=== PATIENT | female | born 1995 | race Hispanic/Latino ===

== ENCOUNTER 2017-05-18 19:19 | Emergency (ER) | payer OTHER ==
[2017-05-18 19:19] VITALS: BMI 19.8
[2017-05-18 19:34] VITALS: BP 114/70; PULSE 107; RESP 16; TEMP 99.1; O2SAT 99
[2017-05-18 20:42] LABS: BASO # 0.1 K/uL (0.0-0.2); BASO % 1.1 % (0.0-2.0); EOS # 0.1 K/uL (0.0-0.7); HEMATOCRIT 34.3 % (34.0-47.0); LYMPH # 1.1 K/uL (1.0-4.3); LYMPH % 14.1 % (20.0-40.0); MEAN CELL VOLUME 85.3 fl (81.0-99.0); MEAN CORPUSCULAR HEMOGLOBIN 28.4 pg (27.0-31.0); MEAN CORPUSCULAR HGB CONC 33.3 g/dL (33.0-37.0); MEAN PLATELET VOLUME 9.3 fl (7.2-11.7); MONO # 0.5 K/uL (0.0-0.8); MONO % 6.7 % (0.0-10.0); NEUT # 6.2 K/uL (1.8-7.0); NEUT % 77.1 % (50.0-75.0); RED CELL DISTRIBUTION WIDTH 15.8 % (11.5-14.5)
[2017-05-18 20:53] LABS: POTASSIUM 4.4 MMOL/L (3.6-5.0)
--- NOTE | 2017-05-18 20:53 | ED PDOC ---
HPI: Abdomen Time Seen by Provider: 05/18/17 19:41 Chief Complaint (Nursing): Female Genitourinary Chief Complaint (Provider): abdominal pain History Per: Patient History/Exam Limitations: no limitations Onset/Duration Of Symptoms: Days (x2) Current Symptoms Are (Timing): Still Present Additional Complaint(s): 22 year old female, currently 12 weeks , who presents to the emergency department with a complaint of abdominal pain associated with diarrhea, nausea and mild brown vaginal discharge ongoing for 2 days. Patient reported hospitalization at [facility] in 4th week of for an ovarian cyst that did not require surgery. P:1 PMD: Delfino Nettles MD Past Medical History Reviewed: Historical Data, Nursing Documentation, Vital Signs Vital Signs: Last Vital Signs Temp 99.1 F 05/18/17 19:31 Pulse 107 H 05/18/17 19:31 Resp 16 05/18/17 19:31 BP 114/70 05/18/17 19:31 Pulse Ox 99 05/18/17 20:58 - Medical History PMH: Back Problems (back pain), Gastritis Denies: Diabetes, Hepatitis, HIV, HTN, Chronic Kidney Disease, Seizures, Sexually Transmitted Disease - Surgical History Surgical History: Cholecystectomy (05/2015) - Family History Family History: States: Unknown Family Hx - Social History Current smoker - smoking cessation education provided: No Alcohol: None Drugs: Denies - Immunization History Hx Tetanus Toxoid Vaccination: No Hx Influenza Vaccination: No Hx Pneumococcal Vaccination: No - Home Medications Home Medications: Ambulatory Orders Medication Instructions Recorded Ciprofloxacin [Cipro] 500 mg PO Q12 #20 tab 08/24/16 Famotidine [Pepcid] 40 mg PO DAILY #30 tablet 08/24/16 Metronidazole [Flagyl] 500 mg PO Q8 #30 tablet 08/24/16 Omeprazole Magnesium [Prilosec Otc] 20 mg PO DAILY #30 tablet. 08/24/16 Dicyclomine [Bentyl] 20 mg PO Q12 PRN #20 tab 05/19/17 - Allergies Allergies/Adverse Reactions: Allergies Allergy/AdvReac Type Severity Reaction Status Date / Time No Known Allergies Allergy Verified 08/22/16 20:22 Review of Systems ROS Statement: Except As Marked, All Systems Reviewed And Found Negative Gastrointestinal: Positive for: Nausea, Abdominal Pain, Diarrhea Genitourinary Female: Positive for: Vaginal Discharge (mildly brownish) Physical Exam - Reviewed Nursing Documentation Reviewed: Yes Vital Signs Reviewed: Yes - Physical Exam Appears: Positive for: Well, Non-toxic, No Acute Distress Head Exam: Positive for: ATRAUMATIC, NORMAL INSPECTION, NORMOCEPHALIC Skin: Positive for: Normal Color Eye Exam: Positive for: EOMI, Normal appearance, PERRL ENT: Positive for: Normal ENT Inspection Neck: Positive for: Normal, Painless ROM, Supple. Negative for: Decreased ROM Cardiovascular/Chest: Positive for: Regular Rate, Rhythm, Chest Non Tender Respiratory: Positive for: Normal Breath Sounds. Negative for: Decreased Breath Sounds, Respiratory Distress Gastrointestinal/Abdominal: Positive for: Tenderness (diffuse mildly). Negative for: Normal Exam Back: Positive for: Normal Inspection. Negative for: L CVA Tenderness, R CVA Tenderness Extremity: Positive for: Normal ROM. Negative for: Tenderness, Pedal Edema Neurologic/Psych: Positive for: Alert (x3), Oriented - Laboratory Results Result Diagrams: 05/18/17 20:38 05/18/17 20:38 - ECG O2 Sat by Pulse Oximetry: 99 (RA) Pulse Ox Interpretation: Normal Medical Decision Making Medical Decision Making: Initial Impression: Abdominal pain; Initial Plan: * Beta-HCG * CMP * Urine dipstick * CBC * Tylenol 650mg PO * Urinalysis * US pelvis/transvag * Reassess: --Time: 23:00 Patient states improvement of symptoms and is stable for discharge home. Instructed to follow up with primary care doctor. Diagnosis: Abdominal pain during , Gastroenteritis --Time: 23:44 FINDINGS: A single intrauterine gestation is identified in transverse presentation with the placenta posterior. motion is identified, as is cardiac activity at a rate of 165 beats per minute. The crown-rump length measures 6.8 cm, corresponding to an approximate gestational age of 13 weeks and 1 day. Despite prolonged interrogation, neither ovary was visualized. No free fluid is identified within the cul-de-sac. IMPRESSION: Single intrauterine gestation with an approximate gestational age of 13 weeks and 1 day. cardiac activity is identified. Despite prolonged interrogation, neither ovary was visualized. No free fluid. Scribe Attestation: Documented by Alta Zambrano, acting as a scribe for Jatin Garza MD. Provider Scribe Attestation: All medical record entries made by the Scribe were at my direction and personally dictated by me. I have reviewed the chart and agree that the record accurately reflects my personal performance of the history, physical exam, medical decision making, and the department course for this patient. I have also personally directed, reviewed, and agree with the discharge instructions and disposition. Disposition - Clinical Impression Clinical Impression: Abdominal pain, Gastroenteritis - Patient ED Disposition Is Patient to be Admitted: No - Disposition Disposition: Routine/Home Disposition Time: 23:00 (Follow up with PMD) Condition: IMPROVED Prescriptions: Dicyclomine [Bentyl] 20 mg PO Q12 PRN #20 tab PRN Reason: abdominal pain/diarrhea Forms: [employer] (Italian)
[2017-05-18 21:02] LABS: ALB/GLOB RATIO 1.3 (1.0-2.1); ALKALINE PHOSPHATASE 61 U/L (38-126); ALT/SGPT 51 U/L (9-52); AST/SGOT 35 U/L (14-36); BILIRUBIN,TOTAL 0.3 mg/dl (0.2-1.3); BLOOD UREA NITROGEN 7 mg/dl (7-17); CALCIUM 8.7 mg/dL (8.4-10.2); CARBON DIOXIDE 26 mmol/L (22-30); CHLORIDE 106 mmol/L (98-107); GFR AFRICAN-AMERICAN > 60; GLUCOSE,RANDOM 100 mg/dL (65-105); SODIUM 138 mmol/l (132-148); TOTAL PROTEIN 7.2 G/DL (6.3-8.2)
[2017-05-18 21:06] LABS: RBC URINE 7 /hpf (0-3); URINE BACTERIA MANY (<OCC); URINE BILIRUBIN NEGATIVE (NEGATIVE); URINE BLOOD NEGATIVE (NEGATIVE); URINE COLOR YELLOW (YELLOW); URINE GLUCOSE (UA) NEG (Normal); URINE KETONE NEGATIVE (NEGATIVE); URINE LEUKOCYTE ESTERASE NEG Leu/uL (Negative); URINE PROTEIN 30 mg/dL (NEGATIVE); WBC URINE 5 /hpf (0-5)
--- NOTE | 2017-05-19 17:46 | US ---
PROCEDURE: Pelvic/OB ultrasound HISTORY: Vaginal bleeding in preg COMPARISON: Comparison made with prior study dated 05/13/2016. FINDINGS: UTERUS: There is a single living intrauterine gestation. Placenta is posteriorly located the clear of the cervical os. Measurements: BPD: 2.4 cm = 14 weeks 1 day AC: 6.7 cm = 13 weeks 2 days HC: 8 cm = 13 weeks 3 days FL: 0.91 cm = 12 weeks 5 days Heart rate documented at 165 BPM motion detected Average ultrasound age = 13 weeks 2 days 1 week 0 day JON based on average ultrasound age = 0611/21/2017 anatomy survey was not performed at this early age. Neither right nor left adnexa visualized on this study. No gross free fluid seen in the cul de sac. IMPRESSION: Single living intrauterine gestation with average ultrasound age estimated approximately 13 weeks 2 days 1 week 0 days. . heart rate and motion documented as above. Placenta is posteriorly located. anatomy survey not performed during this exam.
== END 2017-05-19 00:23 | disposition home or self-care (01) ==
LOC: H.ER 19:19
DX: O26.91 Pregnancy related conditions, unspecified, first trimester (principal); R10.2 Pelvic and perineal pain; Z3A.12 12 weeks gestation of pregnancy

== ENCOUNTER 2018-02-20 23:22 | Emergency (ER) | payer OTHER ==
[2018-02-20 23:22] VITALS: BMI 19.8
[2018-02-20 23:43] VITALS: BP 110/67; PULSE 70; RESP 18; TEMP 98.5; O2SAT 100
--- NOTE | 2018-02-20 23:46 | ED PDOC ---
Lower Extremity Pain/Injury Time Seen by Provider: 02/20/18 23:45 Chief Complaint (Nursing): Lower Extremity Problem/Injury Chief Complaint (Provider): knee pain History Per: Patient Additional Complaint(s): 22-year-old female presents with pain to right knee status post twisting her knee at work about 1 week ago. 2 days ago patient had a massage to the same knee and now pain is worse. Patient took Naprosyn 3 days ago which did not help. She has not taken anything for pain since then. Patient has been using a brace which has helped somewhat. PMD: Dr. Gonzáles Past Medical History Reviewed: Historical Data, Nursing Documentation, Vital Signs Vital Signs: Last Vital Signs Temp 98.5 F 02/20/18 23:41 Pulse 70 02/20/18 23:41 Resp 18 02/20/18 23:41 BP 110/67 02/20/18 23:41 Pulse Ox 100 02/20/18 23:41 - Medical History PMH: Back Problems (back pain), Gastritis - Surgical History Surgical History: Cholecystectomy (05/2015) - Family History Family History: States: No Known Family Hx - Living Arrangements Living Arrangements: With Family - Social History Current smoker - smoking cessation education provided: No Alcohol: None Drugs: Denies - Home Medications Home Medications: Ambulatory Orders Medication Instructions Recorded Ciprofloxacin [Cipro] 500 mg PO Q12 #20 tab 08/24/16 Famotidine [Pepcid] 40 mg PO DAILY #30 tablet 08/24/16 Metronidazole [Flagyl] 500 mg PO Q8 #30 tablet 08/24/16 Omeprazole Magnesium [Prilosec Otc] 20 mg PO DAILY #30 tablet. 08/24/16 Dicyclomine [Bentyl] 20 mg PO Q12 PRN #20 tab 05/19/17 Ibuprofen [Motrin Tab] 800 mg PO Q8 PRN #20 tab 02/21/18 - Allergies Allergies/Adverse Reactions: Allergies Allergy/AdvReac Type Severity Reaction Status Date / Time No Known Allergies Allergy Verified 02/20/18 23:41 Wells Criteria for PE - Wells Criteria for Pulmonary Embolism Clinical Signs and Symptoms of DVT: No P.E is #1 Diagnosis, or Equally Likely: No Heart Rate >100: No Immobilization at least 3 days;Surgery previous 4 weeks: No Previous, objectively diagnosed PE or DVT: No Hemoptysis: No Malignancy w/treatment within 6 months, or palliative: No Total Score: 0 Review of Systems ROS Statement: Except As Marked, All Systems Reviewed And Found Negative Musculoskeletal: Positive for: Other (right knee pain) Physical Exam - Reviewed Nursing Documentation Reviewed: Yes Vital Signs Reviewed: Yes - Physical Exam Appears: Positive for: Well, Non-toxic, No Acute Distress Skin: Positive for: Normal Color. Negative for: Rash Eye Exam: Positive for: Normal appearance Extremity: Positive for: Other (Mild swelling and tenderness to right anterior knee with full range of motion, no calf swelling or tenderness, normal distal sensation) Neurologic/Psych: Positive for: Alert, Oriented - Laboratory Results Urine POC: Negative - ECG O2 Sat by Pulse Oximetry: 100 Pulse Ox Interpretation: Normal - Other Rad Right knee x-ray X-Ray: Interpreted by Me, Viewed By Me X-Ray Interpretation: no fx, no dis Medical Decision Making Medical Decision Makin22 y/o female with right knee pain Plan: test PO motrin X-ray right knee Patient states she feels better after Motrin dose. Knee immobilizer given, crutches declined. Patient was referred to orthopedist for follow-up. Procedures - Splinting Location: right knee Pre-Made Type: knee immobilizer Pre-Proc Neuro Vasc Exam: normal Post-Proc Neuro Vasc Exam: normal Disposition - Clinical Impression Clinical Impression: Knee sprain - Patient ED Disposition Is Patient to be Admitted: No Counseled Patient/Family Regarding: Studies Performed, Diagnosis, Need For Followup, Rx Given - Disposition Referrals: Delfino Nettles MD [Family Provider] - Yifan Rodríguez MD [Staff Provider] - Disposition: Routine/Home Disposition Time: 00:59 Condition: STABLE Additional Instructions: Ice, rest and elevate affected area. Take prescription meds as directed as needed for pain. Follow-up with orthopedist for any persistent symptoms. Prescriptions: Ibuprofen [Motrin Tab] 800 mg PO Q8 PRN #20 tab PRN Reason: Pain, Moderate (4-7) Instructions: Knee Sprain (DC), Knee Immobilizer (DC) Forms: [employer] (Bahamian)
--- NOTE | 2018-02-21 09:07 | RAD ---
Date of service: 02/21/2018 PROCEDURE: Right Knee Radiographs. HISTORY: trauma COMPARISON: None. FINDINGS: BONES: No acute fracture or destructive bony lesion identified. JOINTS: No subluxation or dislocation. No osteoarthritis. JOINT EFFUSION: None. OTHER FINDINGS: None. IMPRESSION: Normal radiographs of the right knee.
== END 2018-02-21 01:19 | disposition home or self-care (01) ==
LOC: H.ER 23:22
DX: S83.91XA Sprain of unspecified site of right knee, initial encounter (principal); X50.9XXA Other and unspecified overexertion or strenuous movements or postures, initial encounter; Y99.0 Civilian activity done for income or pay

== ENCOUNTER 2018-06-20 00:03 | Emergency (ER) | payer OTHER ==
[2018-06-20 00:03] VITALS: BMI 19.8
[2018-06-20 00:18] VITALS: RESP 18; O2SAT 100
--- NOTE | 2018-06-20 04:59 | ED PDOC ---
Upper Extremity Pain/Injury Time Seen by Provider: 06/20/18 04:15 Chief Complaint (Nursing): Upper Extremity Problem/Injury Chief Complaint (Provider): Upper Extremity Problem/Injury History Per: Patient History/Exam Limitations: no limitations Onset/Duration Of Symptoms: Persistent (x2 weeks) Current Symptoms Are (Timing): Still Present Additional Complaint(s): 23 year old female presents to ED with a complaint of right upper and lower extremity pain ongoing for 2 weeks. Patient states she recently traveled to [facility] and was evaluated by a doctor for similar symptoms then given medication for "her nerves". She has limited ROM secondary to pain. Otherwise, patient denies traumatic injury, fall, fever, chills, weight loss, nausea, or vomiting. PCP: Dr. Delfino Nettles Past Medical History Reviewed: Historical Data, Nursing Documentation, Vital Signs Vital Signs: Last Vital Signs Temp 99.1 F 06/20/18 00:15 Pulse 88 06/20/18 00:15 Resp 18 06/20/18 00:15 BP 136/89 06/20/18 00:15 Pulse Ox 100 06/20/18 00:15 - Medical History PMH: Back Problems (back pain), Gastritis, HIV Denies: Diabetes, Hepatitis, HTN, Chronic Kidney Disease, Seizures, Sexually Transmitted Disease - Surgical History Surgical History: Cholecystectomy (05/2015) - Family History Family History: States: Unknown Family Hx - Immunization History Hx Tetanus Toxoid Vaccination: No Hx Influenza Vaccination: No Hx Pneumococcal Vaccination: No - Home Medications Home Medications: Ambulatory Orders Medication Instructions Recorded Ciprofloxacin [Cipro] 500 mg PO Q12 #20 tab 08/24/16 Famotidine [Pepcid] 40 mg PO DAILY #30 tablet 08/24/16 Metronidazole [Flagyl] 500 mg PO Q8 #30 tablet 08/24/16 Omeprazole Magnesium [Prilosec Otc] 20 mg PO DAILY #30 tablet. 08/24/16 Dicyclomine [Bentyl] 20 mg PO Q12 PRN #20 tab 05/19/17 Ibuprofen [Motrin Tab] 800 mg PO Q8 PRN #20 tab 02/21/18 Cyclobenzaprine [Cyclobenzaprine 10 mg PO TID PRN #15 tab 06/20/18 HCl] Naproxen [Naprosyn] 500 mg PO Q12 #14 tab 06/20/18 - Allergies Allergies/Adverse Reactions: Allergies Allergy/AdvReac Type Severity Reaction Status Date / Time No Known Allergies Allergy Verified 02/20/18 23:41 Review of Systems ROS Statement: Except As Marked, All Systems Reviewed And Found Negative Constitutional: Negative for: Fever, Chills, Weight loss Gastrointestinal: Negative for: Nausea, Vomiting Musculoskeletal: Positive for: Arm Pain (right), Leg Pain (right) Physical Exam - Reviewed Nursing Documentation Reviewed: Yes Vital Signs Reviewed: Yes - Physical Exam Appears: Positive for: No Acute Distress Head Exam: Positive for: ATRAUMATIC Skin: Positive for: Normal Color Eye Exam: Positive for: Normal appearance ENT: Positive for: Normal ENT Inspection Neck: Positive for: Normal Cardiovascular/Chest: Positive for: Regular Rate, Rhythm Respiratory: Positive for: Normal Breath Sounds Gastrointestinal/Abdominal: Positive for: Normal Exam Back: Positive for: Normal Inspection Extremity: Positive for: Normal ROM (right shoulder and right leg), Tenderness (point tender on posterior right shoulder). Negative for: Pedal Edema, Calf Tenderness, Deformity (right shouder or arm), Swelling Neurologic/Psych: Positive for: Alert, Oriented. Negative for: Motor/Sensory Deficits - Laboratory Results Result Diagrams: 06/20/18 04:56 06/20/18 04:56 - ECG O2 Sat by Pulse Oximetry: 100 (RA) Pulse Ox Interpretation: Normal Medical Decision Making Medical Decision Making: Initial Impression: 23 year old female with right shoulder pain. Initial Plan: * Labs * Flexeril 10mg PO * Toradol 30mg IV * XR shoulder (YSABEL) * Influenza A B Time: 631 --Labs reviewed: no significant clinical abnormality. Negative for influenza. Bilateral shoulder XRs interpreted by provider: (-) fracture and (-) dislocation. Upon provider reevaluation, patient is medically stable, reports some improvement in symptoms, and requires no further treatment in the ED at this time. Counseling was provided and all questions were answered regarding diagnosis. There is agreement to discharge plan. Return if symptoms persist or worsen. Clinical Impression: musculoskeletal pain of extremity Scribe Attestation: Documented by Alta Zambrano, acting as a scribe for Jatin Garza MD. Provider Scribe Attestation: All medical record entries made by the Scribe were at my direction and personally dictated by me. I have reviewed the chart and agree that the record accurately reflects my personal performance of the history, physical exam, me dical decision making, and the department course for this patient. I have also personally directed, reviewed, and agree with the discharge instructions and disposition. Disposition - Clinical Impression Clinical Impression: Musculoskeletal pain of extremity - Patient ED Disposition Is Patient to be Admitted: No Counseled Patient/Family Regarding: Studies Performed, Diagnosis, Need For Followup - Disposition Disposition: Routine/Home Disposition Time: 06:32 Condition: STABLE Prescriptions: Cyclobenzaprine [Cyclobenzaprine HCl] 10 mg PO TID PRN #15 tab PRN Reason: Muscle Pain Naproxen [Naprosyn] 500 mg PO Q12 #14 tab Instructions: Shoulder Sprain Forms: [facility] ([employer])
[2018-06-20 05:26] LABS: BASO # 0.1 K/uL (0.0-0.2); BASO % 0.9 % (0.0-2.0); EOS # 0.2 K/uL (0.0-0.7); EOS % 3.4 % (0.0-4.0); HEMOGLOBIN 12.6 g/dL (12.0-16.0); LYMPH # 2.3 K/uL (1.0-4.3); LYMPH % 32.1 % (20.0-40.0); MEAN CELL VOLUME 82.5 fl (81.0-99.0); MEAN CORPUSCULAR HEMOGLOBIN 26.5 pg (27.0-31.0); MEAN CORPUSCULAR HGB CONC 32.2 g/dL (33.0-37.0); MEAN PLATELET VOLUME 9.4 fl (7.2-11.7); MONO # 0.7 K/uL (0.0-0.8); MONO % 9.4 % (0.0-10.0); NEUT # 3.9 K/uL (1.8-7.0); NEUT % 54.2 % (50.0-75.0); NRBC % 0.1 % (0.0-0.0); RBC 4.76 Mil/uL (3.80-5.20); RED CELL DISTRIBUTION WIDTH 15.5 % (11.5-14.5); WHITE BLOOD COUNT 7.1 K/uL (4.8-10.8)
[2018-06-20 05:27] LABS: SQUAMOUS EPITHIAL 7 /hpf (0-5); URINE BACTERIA OCC (<OCC); URINE BILIRUBIN NEGATIVE (NEGATIVE); URINE CLARITY CLOUDY (Clear); URINE COLOR YELLOW (YELLOW); URINE GLUCOSE (UA) NEG (NEGATIVE); URINE LEUKOCYTE ESTERASE TRACE Leu/uL (Negative); URINE PROTEIN 30 mg/dL (NEGATIVE); URINE UROBILINOGEN 0.2-1.0 mg/dL (0.2-1.0)
[2018-06-20 05:28] LABS: URINE BLOOD SMALL (NEGATIVE)
[2018-06-20 05:37] LABS: ALB/GLOB RATIO 1.3 (1.0-2.1); ALBUMIN 4.5 g/dL (3.5-5.0); ALT/SGPT 27 U/L (9-52); AST/SGOT 26 U/L (14-36); BLOOD UREA NITROGEN 11 mg/dl (7-17); GFR NON-AFRICAN AMERICAN > 60
[2018-06-20 06:54] VITALS: BP 128/78; PULSE 76; TEMP 98.9
--- NOTE | 2018-06-20 12:29 | RAD ---
PROCEDURE: Radiographs of the Right Shoulder HISTORY: pain COMPARISON: None available FINDINGS: BONES: No acute displaced fracture. The distal clavicle and underlying ribs appear intact. JOINTS: No acute dislocation. SOFT TISSUES: Soft tissues appear unremarkable. No evidence of radiopaque foreign body. IMPRESSION: No acute displaced fracture or dislocation evident. If symptoms persist or if there is continued clinical concern, x-ray follow-up in 7-10 days should be considered.
== END 2018-06-20 06:45 | disposition home or self-care (01) ==
LOC: H.ER 00:03
DX: M79.18 Myalgia, other site (principal)
CPT/HCPCS: 73030; 80053; 81003; 81025; 82550; 85025; 85651; 87804; 99284; J1885

== ENCOUNTER 2018-08-25 19:50 | Emergency (ER) | payer OTHER ==
[2018-08-25 19:50] VITALS: BMI 19.8
[2018-08-25 20:35] VITALS: BP 112/76; PULSE 78; RESP 18; TEMP 98.1; O2SAT 99
--- NOTE | 2018-08-25 22:04 | ED PDOC ---
Upper Extremity Pain/Injury Time Seen by Provider: 08/25/18 20:59 Chief Complaint (Nursing): Finger,Hand,&Wrist Chief Complaint (Provider): third digit trauma History Per: Patient History/Exam Limitations: no limitations Onset/Duration Of Symptoms: Days (three) Current Symptoms Are (Timing): Better Quality: "Pain" Severity: Mild Additional Complaint(s): Pt complains of falling on her left hand and injuring her third digit at the MCP; there is no deformity, full 5/5 strength and full ROM exist Past Medical History Reviewed: Historical Data, Nursing Documentation, Vital Signs Vital Signs: Last Vital Signs Temp 98.1 F 08/25/18 20:31 Pulse 78 08/25/18 20:31 Resp 18 08/25/18 20:31 BP 112/76 08/25/18 20:31 Pulse Ox 99 08/25/18 20:31 - Medical History PMH: Back Problems (back pain), Gastritis, HIV Denies: Diabetes, Hepatitis, HTN, Chronic Kidney Disease, Seizures, Sexually Transmitted Disease - Surgical History Surgical History: Cholecystectomy (05/2015) - Family History Family History: States: Unknown Family Hx - Immunization History Hx Tetanus Toxoid Vaccination: No Hx Influenza Vaccination: No Hx Pneumococcal Vaccination: No - Home Medications Home Medications: Ambulatory Orders Medication Instructions Recorded Ciprofloxacin [Cipro] 500 mg PO Q12 #20 tab 08/24/16 Famotidine [Pepcid] 40 mg PO DAILY #30 tablet 08/24/16 Metronidazole [Flagyl] 500 mg PO Q8 #30 tablet 08/24/16 Omeprazole Magnesium [Prilosec Otc] 20 mg PO DAILY #30 tablet. 08/24/16 Dicyclomine [Bentyl] 20 mg PO Q12 PRN #20 tab 05/19/17 Ibuprofen [Motrin Tab] 800 mg PO Q8 PRN #20 tab 02/21/18 Cyclobenzaprine [Cyclobenzaprine 10 mg PO TID PRN #15 tab 06/20/18 HCl] Naproxen [Naprosyn] 500 mg PO Q12 #14 tab 06/20/18 Diclofenac Potassium 50 mg PO BID #20 tablet 08/25/18 - Allergies Allergies/Adverse Reactions: Allergies Allergy/AdvReac Type Severity Reaction Status Date / Time No Known Allergies Allergy Verified 02/20/18 23:41 Review of Systems Musculoskeletal: Positive for: Hand Pain Physical Exam - Reviewed Nursing Documentation Reviewed: Yes Vital Signs Reviewed: Yes - Physical Exam Appears: Positive for: Well, Non-toxic, No Acute Distress. Negative for: Uncomfortable Head Exam: Positive for: ATRAUMATIC, NORMAL INSPECTION Skin: Positive for: Normal Color, Warm, Dry. Negative for: Diaphoresis, Pallor, Rash Eye Exam: Positive for: Normal appearance Neck: Positive for: Normal, Supple Cardiovascular/Chest: Positive for: Regular Rate, Rhythm Respiratory: Positive for: Normal Breath Sounds Pulses-Carotid (L): 2+ Pulses-Carotid (R): 2+ Pulses-Radial (L): 2+ Pulses-Radial (R): 2+ Extremity: Positive for: Normal ROM, Tenderness, Capillary Refill (<2seconds and all neurosensory capabillitis remain; 5/5 strength), Swelling. Negative for: Pedal Edema, Deformity - ECG O2 Sat by Pulse Oximetry: 99 Disposition - Clinical Impression Clinical Impression: Contusion - Disposition Referrals: Delfino Nettles MD [Primary Care Provider] - Disposition: Routine/Home Disposition Time: 22:18 Condition: STABLE Prescriptions: Diclofenac Potassium 50 mg PO BID #20 tablet Instructions: Contusion (DC), Taking Care of Bruises Forms: [employer] (Czech)
--- NOTE | 2018-08-26 09:35 | RAD ---
PROCEDURE: Right Hand Radiographs. HISTORY: r/o fx COMPARISON: None. FINDINGS: BONES: No acute fracture or destructive bony lesion identified. JOINTS: Normal. No osteoarthritic changes. SOFT TISSUES: Normal. OTHER FINDINGS: None. IMPRESSION: Unremarkable right hand radiographs.
== END 2018-08-25 22:39 | disposition home or self-care (01) ==
LOC: H.ER 19:50
DX: S60.031A Contusion of right middle finger without damage to nail, initial encounter (principal); W19.XXXA Unspecified fall, initial encounter
CPT/HCPCS: 73130; 96372; 99282; J1885

== ENCOUNTER 2018-10-01 15:53 | Emergency (ER) | payer OTHER ==
[2018-10-01 15:54] VITALS: BMI 19.8
[2018-10-01 16:02] VITALS: RESP 16; O2SAT 98
[2018-10-01] MEDS ORDERED: Sodium Chloride 0.9% 1,000 ML IV STA (16:40)
--- NOTE | 2018-10-01 17:07 | ED PDOC ---
HPI: Abdomen Time Seen by Provider: 10/01/18 16:10 Chief Complaint (Nursing): Chest Pain Chief Complaint (Provider): Abdominal Pain History Per: Patient History/Exam Limitations: no limitations Onset/Duration Of Symptoms: Days (x2 weeks) Current Symptoms Are (Timing): Still Present Additional Complaint(s): 23 year old female presents to the ED for evaluation of upper abdominal burning when she eats which radiates into her chest for the past two weeks, associated with intermittent nausea and bloating. Patient also complaining of bilateral breast pain and dysuria. Otherwise, denies fever, diarrhea, vomiting, and cough. Of note, patient states she has not seen her PMD for these symptoms because they are on vacation. PMD: Delfino Nettles Past Medical History Reviewed: Historical Data, Nursing Documentation, Vital Signs Vital Signs: Last Vital Signs Temp 98.6 F 10/01/18 15:57 Pulse 77 10/01/18 15:57 Resp 16 10/01/18 15:57 BP 114/65 10/01/18 15:57 Pulse Ox 98 10/01/18 15:57 - Medical History PMH: Back Problems (back pain), Gastritis, HIV Denies: Diabetes, Hepatitis, HTN, Chronic Kidney Disease, Seizures, Sexually Transmitted Disease - Surgical History Surgical History: Cholecystectomy (05/2015) - Family History Family History: States: Unknown Family Hx - Social History Current smoker - smoking cessation education provided: No Ex-Smoker (has not smoked in the last 12 months): Yes Alcohol: Social Drugs: Denies - Immunization History Hx Tetanus Toxoid Vaccination: No Hx Influenza Vaccination: No Hx Pneumococcal Vaccination: No - Home Medications Home Medications: Ambulatory Orders Medication Instructions Recorded Ciprofloxacin [Cipro] 500 mg PO Q12 #20 tab 08/24/16 Famotidine [Pepcid] 40 mg PO DAILY #30 tablet 08/24/16 Metronidazole [Flagyl] 500 mg PO Q8 #30 tablet 08/24/16 Omeprazole Magnesium [Prilosec Otc] 20 mg PO DAILY #30 tablet. 08/24/16 Dicyclomine [Bentyl] 20 mg PO Q12 PRN #20 tab 05/19/17 Ibuprofen [Motrin Tab] 800 mg PO Q8 PRN #20 tab 02/21/18 Cyclobenzaprine [Cyclobenzaprine 10 mg PO TID PRN #15 tab 06/20/18 HCl] Naproxen [Naprosyn] 500 mg PO Q12 #14 tab 06/20/18 Diclofenac Potassium 50 mg PO BID #20 tablet 08/25/18 Famotidine [Pepcid] 20 mg PO DAILY PRN #10 tab 10/01/18 - Allergies Allergies/Adverse Reactions: Allergies Allergy/AdvReac Type Severity Reaction Status Date / Time No Known Allergies Allergy Verified 10/01/18 16:00 Review of Systems ROS Statement: Except As Marked, All Systems Reviewed And Found Negative Constitutional: Negative for: Fever Cardiovascular: Positive for: Other (bilateral brest pain) Respiratory: Negative for: Cough Gastrointestinal: Positive for: Nausea, Abdominal Pain (upper, burning radiating to chest), Other (bloated). Negative for: Vomiting, Diarrhea Genitourinary Female: Positive for: Dysuria Physical Exam - Reviewed Nursing Documentation Reviewed: Yes Vital Signs Reviewed: Yes - Physical Exam Appears: Positive for: No Acute Distress Head Exam: Positive for: ATRAUMATIC, NORMOCEPHALIC Skin: Positive for: Normal Color, Warm. Negative for: Rash Eye Exam: Positive for: Normal appearance ENT: Positive for: Normal ENT Inspection Neck: Positive for: Normal, Painless ROM, Supple Cardiovascular/Chest: Positive for: Regular Rate, Rhythm, Other (bilateral breast with coffee type flat bullock noted. no discharge from nipples. see below for rest of exam) Respiratory: Positive for: Normal Breath Sounds. Negative for: Respiratory Distress Gastrointestinal/Abdominal: Positive for: Bowel Sounds, Soft, Tenderness (very minimal mid-epigastric tenderness, no RUQ or RLQ tendenress). Negative for: Mass, Distended, Guarding, Rebound Back: Positive for: Normal Inspection Extremity: Positive for: Normal ROM (all extremities) Neurological/Psych: Positive for: Awake, Alert, Oriented (x3) Comments: Breast Exam: normal, no obvious deformity, masses, erythema, warmth, or signs of infection - Laboratory Results Result Diagrams: 10/01/18 17:21 10/01/18 17:21 - ECG O2 Sat by Pulse Oximetry: 98 (RA) Pulse Ox Interpretation: Normal Medical Decision Making Medical Decision Making: Time: 1640 Impression: upper abdominal pain, dysuria, tule out uti, gastritis Plan: --EKG --CMP --Lipase --CBC with differential --Normal saline IV --Pepcid 20mg IVP --Urine culture --Urinalysis --Reevaluation 1900 pt feels better with pepcid, likely gastritis labs and urine reviewed discussed results with patient instructed pt to follow up with doctor as ouptt as well as to follow up with [facility] [place] for further evaluation of breast complaints. Patient is stable for discharge with improvement in pain and labs showing no clinically significant abnormalities. Return parameters discussed and advised to follow up with PMD as needed. All questions answered and patient verbalized agreement and understanding. Scribe Attestation: Documented by Ely Gross, acting as a scribe for Tyler Garcia MD. Provider Scribe Attestation: All medical record entries made by the Scribe were at my direction and personally dictated by me. I have reviewed the chart and agree that the record accurately reflects my personal performance of the history, physical exam, medical decision making, and the department course for this patient. I have also personally directed, reviewed, and agree with the discharge instructions and disposition. 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
[2018-10-01 17:28] LABS: BASO # 0.1 K/uL (0.0-0.2); EOS # 0.1 K/uL (0.0-0.7); EOS % 1.6 % (0.0-4.0); HEMOGLOBIN 11.9 g/dL (12.0-16.0); LYMPH # 1.4 K/uL (1.0-4.3); LYMPH % 20.8 % (20.0-40.0); MEAN CELL VOLUME 81.8 fl (81.0-99.0); MEAN CORPUSCULAR HEMOGLOBIN 26.7 pg (27.0-31.0); MEAN CORPUSCULAR HGB CONC 32.7 g/dL (33.0-37.0); MEAN PLATELET VOLUME 9.4 fl (7.2-11.7); MONO # 0.6 K/uL (0.0-0.8); MONO % 9.7 % (0.0-10.0); NEUT # 4.4 K/uL (1.8-7.0); NEUT % 66.9 % (50.0-75.0); NRBC % 0.1 % (0.0-0.0); RBC 4.45 Mil/uL (3.80-5.20); RED CELL DISTRIBUTION WIDTH 16.7 % (11.5-14.5); WHITE BLOOD COUNT 6.5 K/uL (4.8-10.8)
[2018-10-01 18:07] LABS: SQUAMOUS EPITHIAL 10 /hpf (0-5); URINE BACTERIA RARE (<OCC); URINE BILIRUBIN NEGATIVE (NEGATIVE); URINE BLOOD NEGATIVE (NEGATIVE); URINE CLARITY CLOUDY (Clear); URINE COLOR YELLOW (YELLOW); URINE GLUCOSE (UA) NEG (NEGATIVE); URINE LEUKOCYTE ESTERASE TRACE Leu/uL (Negative); URINE PROTEIN NEGATIVE (NEGATIVE)
[2018-10-01 18:10] LABS: ALB/GLOB RATIO 1.5 (1.0-2.1); ALBUMIN 4.5 g/dL (3.5-5.0); ALT/SGPT 16 U/L (9-52); AST/SGOT 33 U/L (14-36); BLOOD UREA NITROGEN 11 mg/dl (7-17); CALCIUM 9.2 mg/dL (8.4-10.2); GFR NON-AFRICAN AMERICAN > 60; LIPASE 59 U/L (23-300)
[2018-10-01 19:35] VITALS: BP 112/83; PULSE 74; TEMP 98
--- NOTE | 2018-10-02 09:23 | CARD ---
APPROVED REPORT Date of service: 10/01/2018 EKG Measurement Heart [id number] <Conclusion> Normal sinus rhythm with sinus arrhythmia Normal ECG
== END 2018-10-01 19:36 | disposition home or self-care (01) ==
LOC: H.ER 15:53
DX: K29.70 Gastritis, unspecified, without bleeding (principal); Z87.891 Personal history of nicotine dependence
CPT/HCPCS: 80053; 81003; 81025; 83690; 84484; 85025; 87086; 93005; 96361; 96374; 99285; J7030